=== PATIENT | male | born 1960 | race Caucasian/White ===

== ENCOUNTER 2016-12-10 17:03 | Emergency (ER) | payer OTHER ==
[~2016-12-10] VITALS: Ht 180.3 cm; Wt 124.7 kg
--- NOTE | ~2016-12-10 | CR181 ---
[facility] A Service [facility] RADIOLOGY TEXT RESULTS PATIENT: MILA DEAN SR LOCATION: SED : 62 UNIT #: [id number] AGE: [address]: Sinan Chan MD SEX: M ORDER DR: [id number] [place] [address] [id number] MR#: [id number] Acc #: [id number] NAME: MILA DEAN, SR : 1960 SEX: M STUDY DATE/TIME: 12/10/2016 17:39 UNIT: SED ROOM: STUDY DESCRIPTION: CR Lumbar Spine 2 or 3 Views Attending Physician: Sinan Chan M.D. Ordering Physician: Sinan Chan M.D. Primary Care Physician: Primary Care Physician No MEDICAL IMAGING REPORT This report is preliminary unless electronic signature is present. EXAM Lumbar spine series INDICATIONS Back pain and left lower extremity radiculopathy for the past week. PROCEDURE Three views of the lumbar spine. COMPARISON 03/21/2014 FINDINGS Lumbar bodies have normal height. There is very gradual dextrocurvature of the lumbar spine. Six gda-xyw-ejvjvra lumbar type vertebral bodies. Mild to moderate multilevel degenerative disc disease and facet arthrosis. IMPRESSION Multilevel degenerative change is similar to the previous study. No acute change since 2013. Dictated by... Frantz Ross M.D. THIS IS AN ELECTRONICALLY VERIFIED REPORT Frantz Ross M.D. at 12/16/2016 8:55 AM EED/psc TD: 12/10/2016 23:53 JOB #: [id number] [facility] A Service [facility] RADIOLOGY TEXT RESULTS PATIENT: MILA DEAN SR LOCATION: SED : 62 UNIT #: [id number] AGE: [address]: Sinan Chan MD SEX: M ORDER DR: MEDICAL IMAGING REPORT Page 1 of 1
[~2016-12-10 17:03] MED LIST: FLEXERIL PO; VOLTAREN50 MG PO; [UNRECOGNIZED DRUG - REMARK]
[2016-12-10] MEDS ORDERED: PANTOPRAZOLE SO40 MG PO (17:14)
[2016-12-10] MEDS ORDERED: VITAMIN C PO (17:14)
[2016-12-10] MEDS ORDERED: VITAMIN D1000 UNIT PO (17:14)
[2016-12-10] MEDS ORDERED: ZINC SULFATE220 M1 PO (17:15)
[2016-12-10] MEDS ORDERED: WAL-ZYR10 M1 PO (17:15)
[2016-12-10] MEDS ORDERED: DOXYCYCLINE HY100 M4 PO (17:15)
[2016-12-10] MEDS ORDERED: METFORMIN HCL500 M2 PO (17:15)
[2016-12-10] MEDS ORDERED: FLEXERIL10 MG PO (17:15)
[2016-12-10 18:08] LABS: URINE SOURCE CLEAN CATCH
[2016-12-10 18:11] LABS: URINE APPEARANCE CLEAR; URINE BILIRUBIN NEG (NEG); URINE BLOOD TRACE-INTACT (NEG); URINE COLOR YELLOW; URINE GLUCOSE NEG (NORM); URINE KETONE NEG (NEG); URINE LEUKOCYTE ESTERASE NEG (NEG); URINE NITRATE NEG (NEG); URINE PH 5.5 (5-8); URINE PROTEIN NEG (NEG); URINE SPECIFIC GRAVITY 1.025 (1.003-1.035); URINE UROBILINOGEN 0.2 MG/DL (NORM)
[2016-12-10 18:15] LABS: MICRO INDICATED? YES
[2016-12-10 18:22] LABS: CULTURE INDICATED? NO; URINE BACTERIA NEG (NEG); URINE RBC 0-2 /[HPF] (0-2); URINE WBC 0-2 /[HPF] (0-5)
[2016-12-10] MEDS ORDERED: LORTAB 7.5-3251 EACH PO (18:57)
[2016-12-10] MEDS ORDERED: PREDNISONE PO (18:58)
== END 2016-12-10 18:58 | disposition home or self-care (01) ==
LOC: SED 17:03
PROVIDERS: Emergency Medicine
DX: M54.5 Low back pain (principal); Z88.0 Allergy status to penicillin; Z79.899 Other long term (current) drug therapy
CPT/HCPCS: 72100; 81003; 99283